=== PATIENT | male | born 1950 | race African-American/Black ===

== ENCOUNTER → 2019-06-09 | Outpatient (CLI) | payer OTHER ==
--- NOTE | 2019-06-09 11:40 | CARD ---
MR#: [id number] Date of Study: 06/09/2019 Ordering Physician: CHIP CASTELLANOS, Referring Physician: CHIP CASTELLANOS Tech: Jessica Platt RDCS APPROVED REPORT EXAM: Two-dimensional and M-mode echocardiogram with Doppler and color Doppler. Other Information Quality : AverageHR: 63bpm Rhythm : NSR INDICATION Syncope 2D DIMENSIONS RVDd2.9 (2.9-3.5cm)Left Atrium(2D)3.0 (1.6-4.0cm) IVSd1.1 (0.7-1.1cm)Aortic Root(2D)3.4 (2.0-3.7cm) LVDd5.3 (3.9-5.9cm)LVOT Diameter2.2 (1.8-2.4cm) PWd0.9 (0.7-1.1cm)LVDs3.4 (2.5-4.0cm) FS (%) 35.9 %SV86.7 ml LVEF(%)65.0 (>50%) M-Mode DIMENSIONS Left Atrium(MM)3.42 (2.5-4.0cm)Aortic Root3.51 (2.2-3.7cm) Aortic Valve AoV Peak Mono.126.7cm/sAoV VTI21.1cm AO Peak GR.6.4mmHgLVOT Peak Mono.98.5cm/s AO Mean GR.3mmHgAVA (VMAX)2.83cm2 FRANCOIS (VTI)2.53bh7XO P 1/2 Yysc236mb Mitral Valve MV E Lmiarsyj27.9cm/sMV DECEL RWVL690ds MV A Hfydbcyk46.2cm/sE/A Ratio1.3 LEFT VENTRICLE The left ventricle is normal size. There is normal left ventricular wall thickness. The left ventricu lar systolic function is normal. The Ejection Fraction is 60-65%. There is normal LV segmental wall m otion. RIGHT VENTRICLE The right ventricle is normal size. There is normal right ventricular wall thickness. The right ventr icular systolic function is normal. ATRIA The left atrium size is normal. The right atrium size is normal. The interatrial septum is intact wit h no evidence for an atrial septal defect or patent foramen ovale as noted on 2-D or Doppler imaging. AORTIC VALVE The aortic valve is normal in structure and function. The aortic valve is trileaflet. Doppler and Col or Flow revealed mild aortic regurgitation. There is no significant aortic valvular stenosis. MITRAL VALVE The anterior mitral valve leaflet appears myxomatous. There is no evidence of mitral valve prolapse. There is no mitral valve stenosis. Doppler and Color Flow revealed no mitral valve regurgitation note d. TRICUSPID VALVE The tricuspid valve is normal in structure and function. Doppler and Color Flow revealed no tricuspid valve regurgitation noted. There is no tricuspid valve prolapse or vegetation. There is no tricuspid valve stenosis. PULMONIC VALVE The pulmonic valve is not well visualized. GREAT VESSELS The aortic root is normal in size. The ascending aorta is normal in size. The IVC is normal in size a nd collapses >50% with inspiration. PERICARDIAL EFFUSION There is no evidence of significant pericardial effusion. Critical Notification Critical Value: No <Conclusion> The left ventricular systolic function is normal. The Ejection Fraction is 60-65%. There is normal LV segmental wall motion. Mild aortic regurgitation. There is no evidence of significant pericardial effusion. Signed by : Chip Castellanos, Electronically Approved : 06/09/2019 11:39:53
== END | disposition home or self-care (01) ==
LOC: ECHO 10:47
PROVIDERS: ATTEND Internal Medicine Cardiovascular Disease
DX: I35.1 Nonrheumatic aortic (valve) insufficiency (principal)
CPT/HCPCS: 93306

== ENCOUNTER → 2019-07-11 | Outpatient (CLI) | payer OTHER ==
--- NOTE | 2019-07-19 09:20 | CARD ---
MR#: [id number] Date of Study: 07/11/2019 Ordering Physician: CHIP CASTELLANOS, Referring Physician: CHIP CASTELLANOS, Tech: APPROVED REPORT PROCEDURE: Successful implantation of [employer] Aron[employer] loop recorder INDICATIONS: Recurrent syncope/near syncope of uncertain etiology PROCEDURE DETAILS: An informed consent was obtained from patient. Patient was brought to the procedure suite and her le ft chest and shoulder were prepped and draped in the usual fashion. 20 mL of 2% lidocaine was infilt rated into the skin and subcutaneous tissues for local anesthesia. An incision was made in the left third intercostal space 1 inch from midsternal line and using the introducer provided with the kit a track was created in subcutaneous tissue. Subsequently, with the help of the deployer provided with the kit, a [employer] Aron[employer] Confirm loop recorder serial number [id number] was placed in the subcutaneous tiss ue. Hemostasis was secured. Patient tolerated the procedure well. There were no immediate complic ations. CONCLUSION: Successful implantation of [employer] Aron[employer] loop recorder to rule out any significant arrhythmias as a caus e of his syncope/near-syncope Signed by : Chip Castellanos, Electronically Approved : 07/18/2019 15:05:02
== END ==
LOC: LINQ 10:35
PROVIDERS: ATTEND Internal Medicine Cardiovascular Disease
DX: Z45.09 Encounter for adjustment and management of other cardiac device (principal); R55 Syncope and collapse
CPT/HCPCS: 33285; C1764

== ENCOUNTER 2019-10-28 06:57 | Observation (INO) | payer OTHER ==
[2019-10-28] VITALS (14 sets, daily range): BP systolic 123–158; BP diastolic 62–84
[~2019-10-28] VITALS: Ht 185.4 cm; Wt 101.3 kg
[2019-10-28] MEDS ORDERED: BACITRACIN 50,000 UNIT in IV NORMAL SALINE 250ML 250 ML IRR ONE (07:15)
[2019-10-28 07:48] LABS: HEMATOCRIT 39.3 % (39.0-53.0); HEMOGLOBIN 13.1 g/dL (13.0-17.5); RED BLOOD COUNT 4.13 x10^6/uL (4.30-5.70); RED CELL DISTRIBUTION WIDTH 12.2 % (11.5-14.5); WHITE BLOOD COUNT 3.4 x10^3/uL (4.0-11.0)
[2019-10-28] MEDS ORDERED: LIDOCAINE 2%/EPI 1:100,000 20 ML VIAL. ONE (07:48)
--- NOTE | 2019-10-28 07:52 | EKG ---
[facility] [address] [place] [address] Test Date: 2019-10-28 Test Time: 07:48:12 Pat Name: HALIMA WARE Department: Room: Gender: M [employer]: : 1950 Requested By: CHIP MAYBERRY Order Number: [id number] Reading MD: Measurements Intervals [place] Rate: 84 P: 31 ND: 170 QRS: 28 QRSD: 92 T: 34 QT: 356 QTc: 424 Interpretive Statements SINUS RHYTHM NORMAL ECG RI6.02 No previous ECG available for comparison
[2019-10-28 07:58] LABS: CALCIUM 8.5 mg/dL (8.5-10.1); CREATININE 1.3 mg/dL (0.7-1.3); GFR 65.8; POTASSIUM 3.5 mmol/L (3.5-5.1)
[2019-10-28 08:06] LABS: PROTHROMBIN TIME PATIENT 13.2 SEC (11.7-14.0)
[2019-10-28] MEDS ORDERED: fentaNYL PF VIAL 250 MCG/5 ML VIAL ONE (08:44)
[2019-10-28] MEDS ORDERED: MIDAZOLAM HCL/PF 5 MG/5 ML VIAL. ONE (08:44)
[2019-10-28] MEDS ORDERED: IOHEXOL 300 MG/ML 100ML VIAL. ONE (09:14)
[2019-10-28] MEDS ORDERED: CONTRAST GIVEN. MC PRN (09:30)
[2019-10-28] MEDS ORDERED: LIDOCAINE 2%/EPI 1:100,000 20 ML VIAL. IJ ONE (09:30)
[2019-10-28] MEDS ORDERED: fentaNYL PF VIAL 250 MCG/5 ML VIAL IV ONE (09:30)
[2019-10-28] MEDS ORDERED: MIDAZOLAM HCL/PF 5 MG/5 ML VIAL. IV ONE (09:30)
[2019-10-28] MEDS ORDERED: IOHEXOL 300 MG/ML 100ML VIAL. IART ONE (09:30)
--- NOTE | 2019-10-28 10:11 | CARD ---
MR#: [id number] Date of Study: 10/28/2019 Ordering Physician: CHIP CASTELLANOS, Referring Physician: CHIP CASTELLANOS, Tech: APPROVED REPORT PROCEDURES Successful implantation of Cruz's dual chamber permanent pacemaker. Contrast Total: 15 Omni Flouro time: 2.3 min Dose: 5.29 Gycm2 Sedation Time: 63 mins INDICATIONS Sick sinus syndrome, syncope, 6 second pauses PROCEDURE After explaining the risks, benefits, and alternative options, informed consent was obtained from the patient. The patient was brought to the cardiac catheterization lab and the left chest and shoulder were prepp ed and draped in a sterile manner. 30 cc of 2% Lidocaine was infiltrated into skin and subcutaneous tissues for local anasthesia. An in cision was made in left infraclavicular fossa and using blunt dissection and cautery, a pocket was cr eated. Venous access was obtained with help of venogram and 8 and 6 F sheaths inserted. A [employer] Aron[employer] bipolar active fixation right ventricular lead model 2088TC/58, serial number [id number] was then positioned in right ventricular apex under fluoroscopic guidance. Subsequently, a [employer]. Aron 's active fixation bipolar active fixation right atrial lead model 2088TC/52, serial number [id number] was positioned in right atrial appendage under fluoro guidance. The leads were secured in place and attached to [employer] Aron's dual chamber permanent pacemaker model OI0457, serial number [id number]. This w as placed in pocket that was subsequently closed in three layers. Hemostasis was secured. The RA lead showed sensing amplitude of 3 mV, impendance of 579 ohms and threshold of 1V. The RV annalise d showed sensing amplitude of 7/1 mV, impedance of 625 ohms and threshold of 0.8 V. Patient tolerate d the procedure well. There were no immediate complications. CONCLUSION Successful implantation of Curz/[employer]. Aron's dual chamber permanent pacemaker for symptomatic sick si nus syndrome. Signed by : Chip Castellanos, Electronically Approved : 10/28/2019 10:11:25
--- NOTE | 2019-10-28 10:13 | PDOC ---
MODERATE SEDATION ASSESSMENT RISKS/ALTERNATIVES Risks/Alternatives Risks and alternatives of this type of sedation and procedure discussed with: RISK/ALTERNATIVES: Patient H & P ON CHART H & P H & P on chart and reviewed for co-morbid conditions and appropriate labs. H&P ON CHART: Yes STATUS PREG STATUS ASSESSED: N/A MEDS/ALLERGIES REVIEWED Meds/Allergies Reviewed Medications and Allergies including time and route of recently administered narcotics and sedatives. MEDS/ALLERGIES REVIEWED: Yes ASA RATING ASA RATING: II AIRWAY ASSESSMENT Airway Assessment Airway patency, oral function limitations, presence of caps, crowns, dentures, partials, and ability to extend neck assessed. AIRWAY ASSESSMENT: Yes MALLAMPATI SCORE MALLAMPATI SCORE: II PRE-SEDATION ASSESSMENT PRE-SEDATION ASSESSMENT: Yes CHIP MAYBERRY MD Oct 28, 2019 10:12
[2019-10-28] MEDS ORDERED: NO ANTICOAGULANT THERAPY. MC PRN (10:15)
--- NOTE | 2019-10-28 10:15 | NUR ---
Patient arrived to room 206 via bed from PACU at 1015. Patient awake & alert to self, patient has mental developmental issues. Patient does not complain of pain. L chest dressing CDI, skin warm & soft. The patient, HALIMA WARE, 69 y/o, M admitted by CHIP MAYBERRY MD, was given written information regarding hospital policies, unit procedures and contact persons. Valuables were checked and noted. Clothes are the only item kept here. Patient's DPOA here. States patient lives at [facility]. Will continue to monitor.
--- NOTE | 2019-10-28 11:28 | RAD ---
PORTABLE CHEST 1V Clinical indications: Post pacemaker placement. COMPARISON: None available. Findings: Bipolar atrioventricular pacemaker has been placed via a left subclavian approach. No acute lung infiltrate or pleural effusion or pulmonary edema or lung mass or pneumothorax is seen. The heart size, pulmonary vasculature, mediastinum and both ester are unremarkable. Impression: No acute radiographic abnormality is seen. Electronically signed by: Wily Meraz MD (10/28/2019 11:25 AM) [id number]
[2019-10-29 03:11] VITALS: BP 139/74
[2019-10-29 07:00] VITALS: BP 135/76
--- NOTE | 2019-10-29 09:44 | RAD ---
CHEST PA LATERAL History: One day post pacemaker.. Pacemaker is again seen as compared with study from one day earlier. Cardiomediastinal silhouettes are stable. Aorta is again seen to be ectatic/tortuous. No evidence of pneumothorax. No evidence of consolidating infiltrate. Bones appear grossly intact. Mild markings in left lung base likely atelectasis. IMPRESSION: No evidence of consolidating infiltrate. Electronically signed by: Neil Malone MD (10/29/2019 9:41 AM) [facility]
[2019-10-29 11:00] VITALS: BP 130/68
--- NOTE | 2019-10-29 11:21 | DISCH ---
DISCHARGE INSTRUCTIONS Condition on Discharge Condition on Discharge: Stable Activity After Discharge Activity Instructions for Disc: Activity as tolerated Other activity instructions: DO NOT RAISE LEFT ARM ABOVE YOUR SHOULDER FOR 2 WEEKS. WEAR BRACE AT NIGHT Lifting Instructions after Dis: No heavy lifting Wound Incision Care Wound Care Equipment: Dressings ELLA TANG MD Oct 29, 2019 11:21
--- NOTE | 2019-10-29 11:24 | PDOC ---
Provider Note Provider Note DISCHARGE SUMMARY - REASON FOR ADMISSION: PACEMAKER IMPLANTATION FINAL DIAGNOSIS: SSS HOSPITAL COURSE: 69 y.o male admitted for SSS adn 6.2 second pause on loop recorder. He had his loop recorder removed and underwent Cruz dual chamber pacemaker. No acute events post-op. On the morning of discharge, he had normal vital signs. He was ambulating well. Pacer site is clean. CXR and device interrogation wnl. Instructions given to patient. disposition: home. Final meds: none. ELLA TANG MD Oct 29, 2019 11:23
--- NOTE | 2019-10-29 15:10 | NUR ---
Discharge Note: GAIL WARE Discharge instructions and discharge home medications reviewed with Family Member and Dorothy Nurse and a copy given. All questions have been answered and understanding verbalized. The following instructions and handouts were given: pacemaker implantation care after, dual chamber pacemaker, pacemaker follow up, wound check Discontinued lines and drains: Peripheral IV intact. Patient discharged to Assisted Living with Family Member via Wheelchair
== END 2019-10-29 15:05 | disposition home or self-care (01) ==
LOC: CCL 06:57 → 2 NORTH 07:30
PROVIDERS: ADMIT Internal Medicine Cardiovascular Disease; ATTEND Internal Medicine Cardiovascular Disease
DX: I49.5 Sick sinus syndrome (principal); R55 Syncope and collapse
CPT/HCPCS: 33208; 36415; 71045; 71046; 80048; 85027; 85610; 85730; 93005; 96365; 96366; C1785; C1898; G0378; G0379; J0696; J2250; J3010; J3490; J7050; Q9967; 33284; 99152; 99153; J7030